=== PATIENT | male | born 1945 | race American Indian/Alaskan Native ===

== ENCOUNTER 2022-07-07 13:07 | Day surgery (SDC) | payer OTHER ==
[~2022-07-07] VITALS: Ht 180.3 cm; Wt 91.9 kg
[~2022-07-07 13:07] MED LIST: ASPI81CH PO; CHOL10002 PO; Lisinopril2.5 MG PO
--- NOTE | 2022-07-07 13:50 | NUR ---
07/07/22 1350 Shonna Cohen TETRACAINE DROP PLACD IN LEFT EYE AT 1345 PLEDGET PLACED IN LEFT EYE AT 1347
== END 2022-07-07 15:30 | disposition home or self-care (01) ==
LOC: ORSCSDS 13:07
PROVIDERS: Ophthalmology
PROC: 08RK3JZ Replacement of Left Lens with Synthetic Substitute, Percutaneous Approach (ICD-10-PCS; principal; 2022-07-07 14:30)
DX: H25.12 Age-related nuclear cataract, left eye (principal); H52.202 Unspecified astigmatism, left eye; Z96.1 Presence of intraocular lens; I10 Essential (primary) hypertension; Z79.899 Other long term (current) drug therapy; Z79.82 Long term (current) use of aspirin
CPT/HCPCS: J2001; J2250; J3010; J3301; J7040; V2632

== ENCOUNTER 2024-06-05 08:54 | Inpatient (IN) | payer OTHER ==
[2024-06-05] VITALS (11 sets, daily range): BP systolic 130–170; BP diastolic 61–106
[~2024-06-05] VITALS: Ht 180.3 cm; Wt 90.7 kg
[2024-06-05] MEDS ORDERED: Ondansetron HCl 2 MG / ML 2ML Vial IV ONE ×2 (09:10→12:00)
[2024-06-05] MEDS ORDERED: NS 1,000 ML IV SCH ×2 (09:10→13:05)
[2024-06-05 09:40] LABS: Hematocrit 49.6 % (37.0-53.0); Hemoglobin 17.8 g/dL (13.5-17.5); Mean Corpuscular HGB 31.8 pg (26.0-34.0); Mean Corpuscular HGB Conc 35.9 g/dL (31.5-36.5); Mean Corpuscular Volume 89 fL (80-100); Mean Platelet Volume 10.3 fL (9.1-12.4); Platelet Count 400 K/mm3 (150-400); RDW Coefficient Variation 12.3 % (11.7-14.2); RDW Standard Deviation 40.6 fL (35.1-46.3); White Blood Cell Count 11.26 K/mm3 (4.00-11.30)
[2024-06-05 09:57] LABS: CORONAVIRUS COVID-19 AG Negative (NEGATIVE); INFLUENZA A AG Negative (NEGATIVE); INFLUENZA B AG Negative (NEGATIVE)
[2024-06-05 10:03] LABS: BAND PERCENT MAN 2 % (0-8); BASOPHILS PERCENT MAN 0 % (0-2); EOSINOPHILS PERCENT MAN 0 % (0-6); LYMPHOCYTES ABSOLUTE MAN 1.01 K/mm3 (0.84-5.20); LYMPHOCYTES PERCENT MAN 9 % (21-46); METAMYELOCYTE ABSOLUTE MAN 0.22 K/mm3 (0.00-0.00); METAMYELOCYTE PERCENT MAN 2 % (0-0); MONOCYTES ABSOLUTE MAN 1.68 K/mm3 (0.16-1.47); MONOCYTES PERCENT MAN 15 % (4-13); NEUTROPHILS ABSOLUTE MAN 8.33 K/mm3 (1.96-9.15); SEG NEUTROPHILS PERCENT MAN 72 % (41-73); TOTAL CELLS COUNTED 100
[2024-06-05 10:05] LABS: Albumin, Blood 3.6 g/dL (3.4-5.0); Bilirubin, Total 0.8 mg/dL (0.1-1.0); Bun/Creatinine Ratio 60.7 (12.0-20.0); Calcium, Blood 8.1 mg/dL (8.5-10.1); Creatinine, Blood 0.94 mg/dL (0.60-1.20); Globulin, Blood 3.6 g/dL (2.2-4.0); Potassium, Blood 3.9 mmol/L (3.5-5.5); Total Protein, Blood 7.2 g/dL (6.4-8.2)
[2024-06-05] MEDS ORDERED: HYDROmorphone HCl/Pf 1MG SYR IV ONE (12:00)
[2024-06-05] MEDS ORDERED: FentaNYL Citrate 50 MCG/ML 2 ML Injection IV PRN ×4 (13:05→17:55)
[2024-06-05] MEDS ORDERED: Ondansetron HCl 2 MG / ML 2ML Vial IV PRN ×2 (13:05→16:30)
[2024-06-05] MEDS ORDERED: FLU VACC TS2024-25(6MOS UP)/PF 45 MCG/0.5 ML SYRINGE IM SCH (13:05)
[2024-06-05] MEDS ORDERED: OxyCODONE HCL 5 MG TAB PO PRN ×2 (13:05→17:50)
[2024-06-05] MEDS ORDERED: Lactated Ringer's 1,000 ML IV SCH (13:10)
--- NOTE | 2024-06-05 13:21 | NUR ---
PT HAS 18G IV TO LEFT AC THAT FLUSHES WELL AND FLOWS TO GRAVITY.
--- NOTE | 2024-06-05 13:23 | NUR ---
PT BROUGHT FROM ER TO DAY SURGERY FOR PROCEDURE. History, Chart, Medications and Allergies reviewed before start of procedure. Lungs clear T/O to Auscultation. Patient confirms NPO status and agrees with scheduled surgery. Pre-Op teaching done. Pt verbalizes understanding. PT BELONGINGS PLACED UNDERNEATH GURNEY FOR SAFEKEEPING. PT GLASSES TAKEN TO PACU FOR SAFEKEEPING.
[2024-06-05] MEDS ORDERED: TRAZ50 PO (13:36)
[2024-06-05] MEDS ORDERED: Bupivacaine 0.5% HCl 5 MG/ML 30MLVIAL ONE (14:20)
[2024-06-05] MEDS ORDERED: Clindamycin 600mg in D5W 50 ML IV SCH (14:30)
[2024-06-05] MEDS ORDERED: propofoL 20 ML IV ONE (15:39)
[2024-06-05] MEDS ORDERED: Rocuronium Bromide 10 MG/ML 5ML Injection IV ONE (15:39)
[2024-06-05] MEDS ORDERED: HYDROmorphone HCl/Pf 1MG SYR IV PRN ×2 (16:25)
[2024-06-05] MEDS ORDERED: Prochlorperazine Edisylate 10 mg Vial IV PRN (16:30)
[2024-06-05] MEDS ORDERED: HydrALAZINE HCl 20 MG / ML 1ML Vial IV PRN (16:30)
[2024-06-05] MEDS ORDERED: Labetalol HCL 5 MG/ML 4ML Injection (Single Dose) IV PRN (16:30)
[2024-06-05] MEDS ORDERED: LORazepam 2 MG/ML 1ML Injection IV PRN (16:30)
[2024-06-05] MEDS ORDERED: Atropine Sulfate 0.1 MG/ML 10ML SYR IV PRN (16:35)
[2024-06-05] MEDS ORDERED: Albuterol 2.5 MG/3 ML VIAL INH PRN (16:35)
[2024-06-05] MEDS ORDERED: Ondansetron HCl 2 MG / ML 2ML Vial ONE (16:49)
[2024-06-05] MEDS ORDERED: Dexamethasone Sod Phos 10 MG/ML 1ML VIAL ONE (16:49)
[2024-06-05] MEDS ORDERED: Sugammadex Sodium 200 MG/2ML SDV (100 MG/ML) ONE ×2 (16:51→17:20)
[2024-06-05] MEDS ORDERED: FentaNYL Citrate 50 MCG/ML 2 ML Injection ONE (16:53)
[2024-06-05] MEDS ORDERED: Lidocaine HCl 2% 20 ML MDV ONE (17:01)
[2024-06-05] MEDS ORDERED: Ketorolac Tromethamine 30mg Vial ONE (17:01)
[2024-06-05] MEDS ORDERED: Ketorolac Tromethamine 15mg Vial IV PRN (18:10)
--- NOTE | 2024-06-05 18:27 | NUR ---
TRANSFER TO UNIT AFTER RECEIVING REPORT FROM ELECTRONIC CONTROLS REPAIRER SUPERVISOR, PATIENT TRANSFERRED TO UNIT VIA GURNEY. TRANSFERRED TO BED VIA SLIDER SHEET. ALERT AND ORIENTED X3. REPORTS FEELING "DROWSY" POST OP - UNCLEAR TO LOCATION. HAS SINCE BECOME MUCH MORE ALERT. BED ALARM ON. SBP 160s. DENIES CHEST PAIN, PRESSURE. HX OF HTN. S/P HERNIA REPAIR W/ MIDLINE ZEV DX - C/D/I. SHANTE DRAIN RLQ - DRAINING RED SANGUINOUS DRAINAGE. ABD BINDER IN PLACE. DENIES PAIN. TOLERATING SMALL SIPS OF WATER. IVF INFUSING PER EMAR. CALL LIGHT IN REACH. WILL CONTINUE TO MONITOR AND REPORT TO ONCOMING RN.
[2024-06-05] MEDS ORDERED: ASPI81CH PO (18:32)
[2024-06-05] MEDS ORDERED: Lisinopril2.5 MG PO (18:32)
[2024-06-06 04:37] VITALS: BP 167/79
[2024-06-06 04:54] LABS: BASOPHILS ABSOLUTE AUTO 0.09 K/mm3 (0.00-0.23); BASOPHILS PERCENT AUTO 1 % (0-2); EOSINOPHILS ABSOLUTE AUTO 0.02 K/mm3 (0.00-0.68); EOSINOPHILS PERCENT AUTO 0 % (0-6); Hematocrit 45.1 % (37.0-53.0); Hemoglobin 15.7 g/dL (13.5-17.5); IMMATURE GRAN ABSOLUTE AUTO 0.42 K/mm3 (0.00-0.10); IMMATURE GRAN PERCENT AUTO 3 % (0-1); LYMPHOCYTES ABSOLUTE AUTO 1.13 K/mm3 (0.84-5.20); LYMPHOCYTES PERCENT AUTO 9 % (21-46); MONOCYTES PERCENT AUTO 15 % (4-13); Mean Corpuscular HGB 31.3 pg (26.0-34.0); Mean Corpuscular HGB Conc 34.8 g/dL (31.5-36.5); Mean Corpuscular Volume 90 fL (80-100); Mean Platelet Volume 9.8 fL (9.1-12.4); NEUTROPHILS ABSOLUTE AUTO 8.93 K/mm3 (1.96-9.15); NEUTROPHILS PERCENT AUTO 72 % (41-73); Platelet Count 352 K/mm3 (150-400); RDW Coefficient Variation 12.6 % (11.7-14.2); RDW Standard Deviation 41.4 fL (35.1-46.3); Red Blood Cell Count 5.02 M/mm3 (4.30-5.90); White Blood Cell Count 12.39 K/mm3 (4.00-11.30)
[2024-06-06 05:21] LABS: Bun/Creatinine Ratio 46.7 (12.0-20.0); Calcium, Blood 7.7 mg/dL (8.5-10.1); Creatinine, Blood 0.71 mg/dL (0.60-1.20); Potassium, Blood 4.1 mmol/L (3.5-5.5)
--- NOTE | 2024-06-06 05:30 | NUR ---
SHIFT SUMMARY NOC. PT POD 1 FOR HERNIA REPAIR. PT HAS ABDOMINAL BINDER IN PLACE, ZEV C/D/I, SHANTE DRAIN PRODUCING SANGUINEOUS OUTPUT. PT AMBULATES TO BR WITH SBA. PT VOIDING URINE AND TOLERATING CLEAR LIQUIDS. PT MEDICATED FOR PAIN WITH ORALS AND IV PAIN MEDS. PAIN CONTROL MUCH IMPROVED THIS AM AFTER ORAL OXY. PT HAS CONT BIOX IN PLACE WEANED DOWN TO 1L. PT MAKES NEEDS KNOWN, CALLS APPROPRIATELY.
[2024-06-06 07:05] VITALS: BP 154/70
[2024-06-06] MEDS ORDERED: Enoxaparin 40 MG/0.4 ML SYR SC SCH (09:00)
--- NOTE | 2024-06-06 10:19 | NUR ---
MORNING NOTE THIS RN ASSUMED CARE AT APPROX 0715. PATIENT ALERT AND ORIENTED X4 - COMMUNICATING NEEDS EFFECTIVELY. VSS. SBP 150s. MAP >65. DENIES CHEST PAIN, PRESSURE. TITRATED TO ROOM AIR, SATs >90%. CONTINUOUS PULSE OX IN PLACE. POD 1 HERNIA REPAIR WITH RLQ INCISION WITH ZEV DX - C/D/I. SHANTE DRAIN WITH MINIMAL RED SANGUINOUS DRAINAGE. ABD BINDER IN PLACE. MANAGING PAIN PER EMAR. TOLERATING SMALL SIPS OF CLEAR LIQUIDS. IVF INFUSING PER EMAR. BEDBATH PERFORMED THIS MORNING. UP IN CHAIR WITH 1P ASSIST. CALL LIGHT IN REACH.
[2024-06-06 14:50] VITALS: BP 135/69
--- NOTE | 2024-06-06 17:26 | NUR ---
SHIFT SUMMARY NO ACUTE CHANGES SINCE MORNING NOTE. PATIENT REMAINS ALERT AND ORIENTED X4. VISITOR AT BEDSIDE THROUGHOUT AFTERNOON. VSS. SBP 130s-150s. MAP >65. DENIES CHEST PAIN, PRESSURE. REMAINS ON ROOM AIR, SATs >90%. POD 1 HERNIA REPAIR - ZEV DX C/D/I. MINIMAL SANGUINOUS DRAINAGE FROM SHANTE. DENIES FLATULENCE. TOLERATING WATER AND CLEAR LIQUIDS - ARREOLA AT BEDSIDE THIS EVENING, PLAN TO POSSIBLY ADVANCE DIET TOMORROW. IVF INFUSING PER EMAR. VOIDING. BEDBATH COMPLETED TODAY. CALL LIGHT IN REACH. WILL CONTINUE TO MONITOR AND REPORT TO ONCOMING RN.
[2024-06-06 19:17] VITALS: BP 143/69
[2024-06-06] MEDS ORDERED: Lisinopril 5 MG Tab PO SCH (21:00)
[2024-06-06] MEDS ORDERED: TraZODone HCl 50 MG Tab PO SCH (21:00)
[2024-06-07 02:29] VITALS: BP 121/58
--- NOTE | 2024-06-07 05:10 | NUR ---
SHIFT SUMMARY NOC. PT POD 2 FOR HERNIA REPAIR. PT'S ZEV IS C/D/I UNDER ABDOMINAL BINDER. SHANTE DRAIN IS PRODUCING RED SANGUINEOUS OUTPUT. PT VOIDING URINE. PT REPORTED MILD NAUSEA THIS MORNING BUT DENIES NEED FOR MEDICATION, INSTRUCTED PT TO HOLD OFF ON CLEAR FLUID INTAKE DUE TO NAUSEA. PT MEDICATED FOR PAIN WITH OXY 5MG. PT FREQUENTLY NEEDED ADDITIONAL 5MG AFTER FIRST DOSE. PT DID NOT NEED IV PAIN MEDS. PT MAKES NEEDS KNOWN AND CALL LIGHT IN REACH.
[2024-06-07 05:52] LABS: Bun/Creatinine Ratio 28.7 (12.0-20.0); Calcium, Blood 8.4 mg/dL (8.5-10.1); Creatinine, Blood 1.08 mg/dL (0.60-1.20); Potassium, Blood 3.7 mmol/L (3.5-5.5)
[2024-06-07 07:10] VITALS: BP 141/59
[2024-06-07 14:18] VITALS: BP 137/66
--- NOTE | 2024-06-07 17:51 | NUR ---
PATIENT IS ALERT AND ORIENTED AND COOPERATIVE WITH CARE. NO C/O N/V THIS SHIFT. TOLERATING CLEAR LIQUIDS. NO FLATULENCE PER PATIENT. SHANTE DRAIN IN PLACE, 55 ML OUTPUT THIS SHIFT. ZEV DRESSING IN PLACE, MINIMAL DRAINIAGE NOTED. PATIENT IS VOIDING CLEAR YELLOW URINE. NS INFUSING IN RAC IV. 1PA WIH FWW, AMBULATES IN THE HALLS. PAIN MANAGED PER EMAR. CRACKLES NOTED IN BILATERAL LUNG BASES. WILL CONTINUE TO MONITOR
[2024-06-07 19:11] VITALS: BP 147/66
[2024-06-08 03:58] VITALS: BP 137/59
--- NOTE | 2024-06-08 04:00 | NUR ---
SHIFT SUMMARY ARTURO WAS ALERT AND FULLY ORIENTED ON ASSESMENT. PT DENIES NAUSEA, BUT HAD AN EPISODE OF MICHELLE LIQUID EMESIS. PT BOWEL TONES HYPO ACTIVE, STILL NOT PASSING GAS. PT ENCOURAGED TO TAKE IT EASY ON PO FLUIDS. SHANTE DRAIN OUTPUTTING SEROSANG, SHNATE DRESSING CHANGED THIS SHIFT. ZEV DRESSING C/D/I AND COMPRESSED. UMBILICAL HERNIA NOTED. NO OTHER EVENTS THIS SHIFT, PAIN WELL MANAGED TONIGHT.
[2024-06-08 07:26] VITALS: BP 138/70
--- NOTE | 2024-06-08 11:06 | NUR ---
dr oviedo in to see pt.
--- NOTE | 2024-06-08 11:25 | NUR ---
DR LEONG IN TO SEE PT.
[2024-06-08 15:37] VITALS: BP 149/59
--- NOTE | 2024-06-08 17:06 | NUR ---
SUMMARY PT HAS NOT PASSED FLATUS. DENIES NAUSEA. TOLERATING SMALL SIPS OF CLEARS AND ICE. AMBULATED MULTIPLE TIMES IN [place]. SAT UP IN CHAIR OFF AND ON T/O DAY. MEDICATED PER ORDERS FOR PAIN. CALL LIGHT IN REACH.
[2024-06-08 19:02] VITALS: BP 142/64
[2024-06-09 03:24] VITALS: BP 156/64
--- NOTE | 2024-06-09 04:26 | NUR ---
SHIFT SUMMARY POD4 HERNIA REPAIR W/ MESH. ZEV REMAINS COMPRESSED, C/D/I. SHANTE IN RLQ REQUIRED X1 DRESSING CHANGE. BULB DRAINED MULTIPLE TIMES, ABOUT 60 MLS OUT. VERY PINK SS DRAINAGE NOTED. BINDER REMAINS IN PLACE. VSS. PT SLEPT ON AND OFF T/O THE NIHGT. PT TOLLERATED SIPS AND CHIPS W/O EMESIS. PT MEDICATED FOR NAUSEA X1. PT REPORTS NO FLATTUS OR BM T/O THE NIGHT. IVF INFUSING T/O THE NIGHT. VOIDING INTO URINAL, URINE NOTED TO BE DARK AND CONCENTRATED. OVERALL, NO ACUTE EVENTS NOTED. PT RESTING IN BED, REPORTS HE IS TRYING TO NAP. PLAN TO ENCOURAGE AMBULATION AND BOWEL REST.
[2024-06-09 06:30] LABS: Hematocrit 41.1 % (37.0-53.0); Hemoglobin 13.8 g/dL (13.5-17.5); Mean Corpuscular HGB 31.4 pg (26.0-34.0); Mean Corpuscular HGB Conc 33.6 g/dL (31.5-36.5); Mean Corpuscular Volume 94 fL (80-100); Mean Platelet Volume 9.6 fL (9.1-12.4); Platelet Count 341 K/mm3 (150-400); RDW Coefficient Variation 12.6 % (11.7-14.2); RDW Standard Deviation 43.7 fL (35.1-46.3); Red Blood Cell Count 4.39 M/mm3 (4.30-5.90); White Blood Cell Count 12.81 K/mm3 (4.00-11.30)
[2024-06-09 06:52] LABS: Albumin, Blood 2.5 g/dL (3.4-5.0); Anion Gap 14 mmol/L (3-11); Blood Urea Nitrogen 27 mg/dL (8-24); Bun/Creatinine Ratio 37.1 (12.0-20.0); CO2, Blood 24 mmol/L (21-32); Calcium, Blood 8.3 mg/dL (8.5-10.1); Chloride, Blood 98 mmol/L (98-108); Creatinine, Blood 0.73 mg/dL (0.60-1.20); Glomerular Filtration Rate 93 (60-); Glucose, Blood 76 mg/dL (70-99); Phosphorus, Blood 3.1 mg/dL (2.5-4.9); Potassium, Blood 4.2 mmol/L (3.5-5.5); Sodium, Blood 132 mmol/L (136-145)
[2024-06-09] MEDS ORDERED: NS 1,000 ML IV SCH (07:30)
[2024-06-09 07:38] VITALS: BP 129/61
--- NOTE | 2024-06-09 13:27 | NUR ---
DR JAIN IN TO SEE PT.
[2024-06-09 15:31] VITALS: BP 125/59
--- NOTE | 2024-06-09 17:07 | NUR ---
SUMMARY NO ACUTE CHANGES T/O SHIFT. PT SAT UP IN CHAIR AND AMBULATED IN [place]. DENIES PASSING FLATUS. ASKED DR CRISTOBAL MCRAE, PT WAS GIVEN JELLO AND ADVISED TO TAKE SLOWLY. OTHERWISE HAS BEEN TAKING SIPS OF WATER. DID OVERHEAR PT ASK FOR SIP OF VISITOR'S COFFEE. HAVE DISCUSSED WITH PT THE NEED TO ONLY TAKE SIPS OF CLEARS AND TO TAKE SLOWLY. PT VISITING WITH GUEST AT THIS TIME. CALL LIGHT IN REACH.
[2024-06-09 19:40] VITALS: BP 130/61
[2024-06-10 03:15] VITALS: BP 120/50
[2024-06-10 06:31] LABS: Bun/Creatinine Ratio 39.9 (12.0-20.0); Calcium, Blood 8.3 mg/dL (8.5-10.1); Creatinine, Blood 0.63 mg/dL (0.60-1.20); Potassium, Blood 3.9 mmol/L (3.5-5.5)
--- NOTE | 2024-06-10 06:43 | NUR ---
SHIFT SUMMARY; PATIENT SLEPT IN SHORT INTERVALS. WAS UP TO BR FOR 4 BM'S TONIGHT, LOOSE. SHANTE EMPTIED OF TOTAL OF 50ML SEROSAING. FLUID. MEDICATED TORADOL AND OXY. TAKING CLEAR LIQUIDS EASILY. IV FLUIDS NS/75ML/HR. NO NAUSEA.
[2024-06-10 07:08] VITALS: BP 131/60
[2024-06-10] MEDS ORDERED: NS 1,000 ML IV SCH (12:10)
[2024-06-10 14:38] VITALS: BP 124/64
[2024-06-10 19:02] VITALS: BP 138/55
--- NOTE | 2024-06-10 19:22 | NUR ---
SHIFT SUMMARY POD5 ABD INCISIONAL HERNIA REPAIR, A/OX4, VSS, TOLERATING PO, DIET ADVANCED BUT NO DINNER TRAY WAS BROUGHT UP FROM [place], MULTIPLE BM'S TODAY, PAIN MANAGED PER EMAR. NO ACUTE EVENTS THIS SHIFT, CALL LIGTH IN REACH.
[2024-06-11 03:55] VITALS: BP 132/51
--- NOTE | 2024-06-11 04:30 | NUR ---
SHIFT SUMMARY POD 6 HERNIA REPAIR. NO ACUTE CHANGES OVERNIGHT. VSS. TOLERATING FULL LIQUID DIET, DENIES N/V. ZEV TO RLQ c DRIED SANG DRAINAGE ON DRESSING, MAINTAINING COMPRESSION. SHANTE DRAIN c SEROSANG OUTPUT, BULB COMPRESSED. VOIDING. FREQUENT BMs, INTERMITTENT INCONT, DENIES ATTENDS. IND IN ROOM. PT REPORTS PAIN TOLERABLE, MEDICATED PER EMAR. CALL LIGHT IN REACH, WILL REPORT TO DAY RN.
[2024-06-11 07:00] VITALS: BP 143/58
[2024-06-11 13:59] VITALS: BP 138/59
[2024-06-11] MEDS ORDERED: Acetaminophen325 M1 PO (18:06)
[2024-06-11] MEDS ORDERED: ONDA4ODT MM (18:08)
--- NOTE | 2024-06-11 18:45 | NUR ---
DISCHARGE SUMMARY S/P ABD INCISIONAL HERNIA REPAINR, A/OX4, VSS, TOLERATING PO, PAIN WELL MANAGED, AMBULATIGN INDEPENDENTLY, VOIDING AND HAVING MULTIPLE BM'S. DISCUSSED DISCHARGE ISNTRUCTIONS WITH HIM INCLUDING HOME CARE, MEDICATIONS, AND FOLLOW UP APPOINTMENTS. NO QUESTIONS AT THIS TIME, ESCORTED OUT VIA WC TO PRIVATE AUTO TO GO HOME. IV ACCESS REMOVED JUST BEFORE DC INSTRUCTIONS.
== END 2024-06-11 18:35 | disposition home or self-care (01) | DRG 354 ==
LOC: ER 08:54 → SURS 14:28 → MEDS 14:28 → SURS 14:28
PROVIDERS: Internal Medicine; Student in an Organized Health Care Education/Training Program; Surgery; ADMIT Internal Medicine
PROC: 0WUF0JZ Supplement Abdominal Wall with Synthetic Substitute, Open Approach (ICD-10-PCS; principal; 2024-06-05 14:00)
DX: K43.0 Incisional hernia with obstruction, without gangrene (principal); E87.1 Hypo-osmolality and hyponatremia; I10 Essential (primary) hypertension; Z66 Do not resuscitate; G47.00 Insomnia, unspecified; Z96.651 Presence of right artificial knee joint; E86.0 Dehydration; Z88.0 Allergy status to penicillin; Z88.5 Allergy status to narcotic agent; Z79.82 Long term (current) use of aspirin; Z79.811 Long term (current) use of aromatase inhibitors; Z85.038 Personal history of other malignant neoplasm of large intestine; Z90.49 Acquired absence of other specified parts of digestive tract; Z98.42 Cataract extraction status, left eye; Z98.41 Cataract extraction status, right eye; Z93.2 Ileostomy status
CPT/HCPCS: 36415; 74177; 80048; 80053; 80069; 83605; 83690; 84295; 85025; 85027; 87428-QW; 93005; 93010; 94762; 96361; 96372; 96374; 96375; 96376; 99285-25; A9270; C1781; G0378; J1100; J1171; J1650; J1885; J2405; J2704; J3010; J7030; J7120; Q9967